=== PATIENT | female | born 1975 | race Caucasian/White ===

== ENCOUNTER 2019-09-10 11:23 | Emergency (ER) | payer OTHER, SELFPAY ==
[2019-09-10 11:24] VITALS: BP 156/112; PULSE 216; RESP 16; TEMP 36; O2SAT 100; BMI 24.1
[2019-09-10 11:25] VITALS: PULSE 246
[2019-09-10] MEDS: Adenosine 6 MG/2 ML Syringe IV (11:30)
[2019-09-10 11:37] VITALS: BP 197/112; PULSE 112; RESP 13; O2SAT 100
--- NOTE | 2019-09-10 11:37 | RAD_ITS ---
STUDY: X-RAY CHEST REASON FOR EXAM: Female, 44 years old. Palpitations. TECHNIQUE: Single AP portable view of the chest. COMPARISON: None. FINDINGS: The lungs are clear and expanded. There is no demonstrated pleural abnormality. Normal size heart. Normal mediastinum and kevin. Normal visualized pulmonary arteries. Normal visualized aortic arch and descending thoracic aorta. Normal visualized thoracic spine. Normal visualized ribs, clavicles, and shoulders. There is no demonstrated abnormality of the visualized soft tissue structures of the upper abdomen. RAD/Chest 1 View (Portable) IMPRESSION: Normal x-ray examination of the chest. Electronically Signed: Jose Jeronimo DO at 12:25 EDT Tel [phone], Service support ,
--- NOTE | 2019-09-10 11:38 | EKG12_ITS ---
Test Reason : PALPITAIONS Blood Pressure : / mmHG Vent. Rate : 216 BPM Atrial Rate : 214 BPM P-R Int : 000 ms QRS Dur : 076 ms QT Int : 206 ms P-R-T Axes : 000 080 -75 degrees QTc Int : 390 ms Supraventricular tachycardia Marked ST abnormality, possible inferior subendocardial injury Abnormal ECG Confirmed by TRICIA TOBAR, ZANE ([id number]), non linear editor JACKIE ROBERTS ([id number]) on 09/12/2019 1:42:32 PM Referred By: MR Confirmed By:ZANE CLARKE MD
--- NOTE | 2019-09-10 11:44 | EKG12_ITS ---
Test Reason : REPEAT Blood Pressure : / mmHG Vent. Rate : 108 BPM Atrial Rate : 108 BPM P-R Int : 184 ms QRS Dur : 084 ms QT Int : 324 ms P-R-T Axes : 057 069 069 degrees QTc Int : 434 ms Sinus tachycardia Nonspecific ST and T wave abnormality Abnormal ECG Confirmed by TRICIA TOBAR, ZANE ([id number]), order editor JACKIE ROBERTS ([id number]) on 09/12/2019 1:43:40 PM Referred By: MR Confirmed By:ZANE CLARKE MD
[2019-09-10] MEDS: 0.9% Normal Saline 1,000 ML 1000 ML IV (11:45)
[2019-09-10 11:53] LABS: Absolute Lymphocyte Count 2.15 X10^3/uL (0.83-4.51); Absolute Neutrophil Count 5.4 X10^3/uL (2.0-7.7); Basophil# 0.02 X10^3/uL; Basophil% 0.2 % (0-1); Eosinophil# 0.12 X10^3/uL; Eosinophils% 1.4 % (0-5); Hematocrit 51.4 % (37-47); Hemoglobin 16.8 g/dL (12.0-15.0); Lymphocyte # 2.15 X10^3/ul (4.0); Lymphocyte % 25.3 % (19-41); Mean Corp Hgb Conc 32.7 g/dL (32-36); Mean Corpuscular Hgb 31.4 pg (27.0-32.0); Mean Corpuscular Volume 96.1 fL (81-99); Mean Platelet Vol. 9.6 fl (6.2-12.0); Monocyte# 0.84 X10^3/uL; Monocyte% 9.9 % (0-10); NRBC Flagged by Analyzer 0 % (0-5); Neutrophil # 5.35 X10^3/uL (2.7-7.7); Neutrophil % 62.8 % (47-70); Platelet Count 346 K/mm3 (150-450); RBC Distribution Width SD 42.2 fl (35.1-43.9); Red Blood Count 5.35 M/mm3 (4.2-5.4); White Blood Count 8.5 K/mm3 (4.4-11.0)
--- NOTE | 2019-09-10 12:03 | ED.VIS.GEN ---
History of Present Illness Informant: Patient Onset: Today Context: Sudden Onset Timing: Continuous Quality: heart racing Location: chest Current Severity: Severe Maximum Severity: Severe Worsened by: nothing Relieved by: nothing Associated Symptoms: Lightheadedness Narrative: 44-year-old female presents with palpitations and feeling as if her heart is racing and lightheadedness. This morning she stood up from eating breakfast went to the refrigerator and had a sudden onset of the symptoms. 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 Symptoms did not resolve which prompted her visit here to the emergency department. She is not having chest pain. She did drink some alcohol last night but none since then. She has not had any dyspnea on exertion recent travel recent surgery history of DVT or PE or use of oral control. She has had palpitations in the past but they usually resolve after several seconds or at most a couple of minutes on their own and she is never been evaluated or had to come to the hospital for these. No leg pain or swelling or hemoptysis or upper respiratory symptoms. Prior similar symptoms: No Recent Illness/Hospitalization: No <Aman Ramires - Last Filed: 09/10/19 13:43> <Jose Francisco Dumont - Last Filed: 09/10/19 15:04> Chief Complaint: Palpitations Past Medical History Prior records reviewed: Yes Past Medical History: None Surgical History: no surgical history Lives: With Family Smoking Status: Never smoker Alcohol: Occasional Drugs: None <Aman Ramires - Last Filed: 09/10/19 13:43> <Jose Francisco Dumont - Last Filed: 09/10/19 15:04> - Allergies and Home Meds Allergies/Adverse Reactions: Allergies dicyclomine [From Bentyl] Allergy (Verified 09/10/19 11:37) PT UNSURE OF REACTION Penicillins Allergy (Verified 09/10/19 11:38) Hives promethazine [From Phenergan] Allergy (Verified 09/10/19 11:37) PT UNSURE OF REACTION Primary Care Physician: Houston Stafford MD [STAFF PHYSICIAN] - Review of Systems General: Denies: Chills, Fever, Sweats Eyes: Denies: Visual changes - bilaterally, Diplopia ENT: Denies: Rhinorrhea, Sore throat Cardiovascular: Reports: Palpitations, Heart racing. Denies: Chest pain Respiratory: Denies: Dyspnea, Cough, Dyspnea on exertion Gastrointestinal: Denies: Abdominal pain, Nausea, Vomiting, Diarrhea, Melena, Hematochezia Genitourinary: Denies: Dysuria, Hematuria, Frequency Musculoskeletal: Denies: Back pain, Extremity Pain Skin: Denies: Rash, Wounds Neurological: Denies: Headache, Weakness, Numbness <Aman Ramires - Last Filed: 09/10/19 13:43> Physical Exam Vital Signs/Narrative: Vital Signs Temp Pulse Resp BP Pulse Ox 09/10/19 11:37 112 H 13 197/112 H 100 09/10/19 11:25 246 H 09/10/19 11:24 96.8 F L 216 H 16 156/112 H 100 Inital Vital Signs reviewed: Yes General: Well nourished, Well developed, No Acute Distress Head: Normocephalic, Atraumatic Eyes: Perrl, EOMI ENT: Moist mucous membranes, No rhinorrhea Neck: Supple, Nontender Cardiovascular: Regular rhythm, No murmurs, Tachycardia Respiratory: No distress, CTA bilaterally, Chest nontender Abdomen: Soft, Nontender, Nondistended, Normal bowel sounds Back: Nontender, Normal Inspection Extremities: Nontender, No edema Skin: Normal color, No rash Neurological: Alert, Oriented x3, Cranial nerves II-XII grossly intact, Normal Strength, Normal Sensation Psychological: Normal affect, Normal Mood <Aman Ramires - Last Filed: 09/10/19 13:43> Vital Signs/Narrative: Vital Signs Temp Pulse Resp BP Pulse Ox 09/10/19 13:44 105 H 17 133/89 H 100 09/10/19 13:00 105 H 14 137/93 H 100 09/10/19 12:41 116 H 23 H 139/101 H 100 09/10/19 11:37 112 H 13 197/112 H 100 09/10/19 11:25 246 H 09/10/19 11:24 96.8 F L 216 H 16 156/112 H 100 <Jose Francisco Dumont - Last Filed: 09/10/19 15:04> Diagnostic/Tx/Re-eval Chest X-Ray - ED: 1 View, Read by ED Physician, Read by Radiologist, No Acute Disease - Rhythm Strip Rhythm Strip: SVT Rate: 237 Ectopy: None - EKG Initial EKG Interpretation: No Acute Injury Pattern, SVT Prior: No Prior Follow-up EKG Interpretation: No Acute Injury Pattern, Sinus Tachycardia Prior: Changed - Medical Decision Making Patient presents on arrival complaining of palpitations heart rate on the monitor was 237 bpm we obtained an EKG which showed supraventricular tachycardia. Vital signs are stable. Patient had an IV started she was hooked up to the crash cart on the monitor with the pads in place and was given 6 mg of adenosine which resulted in a pause and a return of sinus rhythm which was confirmed with a repeat EKG which showed sinus rhythm rate of 108 bpm. Vital signs remained stable she was resting comfortably. Chest x-ray unremarkable. Laboratory work-up including CBC BMP troponin and TSH are unremarkable as well. D-dimer is negative Repeat evaluation her heart rate remains between 110 and 115 bpm. Discussed with patient I want to call cardiology for further recommendations and possible starting of a beta-chichi and at this time the patient refuses stating she does not wish to take medicine she wishes to follow-up with her doctor at [facility] and is requesting discharge. Her heart rate is 105bpm we do not feel the patient needs a sign out AMA she will be discharged return for worsening symptoms otherwise call her doctor tomorrow at [facility] <Aman Ramires Filed: 09/10/19 13:43> - Medical Decision Making Attending Note: I evaluated this patient with the midlevel provider. I performed my own face to face evaluation and agree with the above noted history and physical. I agree with the plan of care and the disposition. Patient presented secondary to palpitations. Patient's initial EKG and cardiac monitoring showed her to have SVT. Patient was chemically cardioverted with 6 mg of adenosine. She maintained a sinus rhythm, and her sinus rate slowed to 108 through observation in the emergency department. We recommended potential observation and cardiology consultation, but the patient is of sound mind and would like to sign out AGAINST MEDICAL ADVICE. She will follow-up at [facility] tomorrow. - Critical Care Time Critical care time (excluding procedures): 30-74 minutes <Jose Francisco Dumont Filed: 09/10/19 15:04> ED Disposition <Aman Ramires Filed: 09/10/19 13:43> <Jose Francisco Dumont Filed: 09/10/19 15:04> - Plan for ED Patient: Disposition: Home or Assisted Living Diagnosis: SVT (supraventricular tachycardia) Instructions: ED Tachycardia PAT Referrals: Houston Stafford MD [STAFF PHYSICIAN] -
[2019-09-10 12:14] LABS: Anion Gap 7 (5-15); BUN 12 mg/dL (7-18); BUN/Creat Ratio 12.2 RATIO (10-20); Calcium,Total 9.3 mg/dL (8.5-10.1); Chloride 105 mmol/L (98-107); Creatinine, Serum 0.98 mg/dL (0.55-1.02); EST Glomerular Filtration Rate 65 mL/min (>60); Est Glom Filt Rate - Afr Amer 79 mL/min (>60); Estimated Creatinine Clearance 65.92 ml/min; Glucose 153 mg/dL (74-106); Potassium 3.3 mmol/L (3.5-5.1); Sodium Level 138 mmol/L (136-145); Thyroid Stim Hormone (TSH) 1.38 uIU/mL (0.358-3.74)
[2019-09-10 12:41] VITALS: BP 139/101; PULSE 116; RESP 23; O2SAT 100
[2019-09-10 13:00] VITALS: BP 137/93; PULSE 105; RESP 14; O2SAT 100
[2019-09-10 13:38] LABS: D-Dimer Quantitative (DVT/PE) <= 0.27 FEU/ug/m (0.27-0.49)
[2019-09-10 13:44] VITALS: BP 133/89; PULSE 105; RESP 17; O2SAT 100
== END 2019-09-10 14:18 | disposition home or self-care (01) ==
PROVIDERS: Emergency Provider Physician Assistant Medical
DX: I47.1 Supraventricular tachycardia (principal); Z88.0 Allergy status to penicillin; Z88.8 Allergy status to other drugs, medicaments and biological substances
CPT/HCPCS: 71045; 80048; 84443; 84484; 85025; 85379; 93005; 96361; 96374; 99284; A4216; J0153